=== PATIENT | female | born 1965 | race Caucasian/White ===

== ENCOUNTER 2017-10-10 14:34 | Emergency (ER) | payer MEDICAID ==
[~2017-10-10] VITALS: Ht 170.2 cm; Wt 106.8 kg
[~2017-10-10 14:34] MED LIST: HYDR-3965 PO; PENI500T2 PO
[2017-10-10] MEDS ORDERED: IBUP-1984 PO (15:20)
[2017-10-10 15:35] VITALS: BP 145/89
== END 2017-10-10 15:35 | disposition home or self-care (01) ==
LOC: ER 14:34
DX: M25.511 Pain in right shoulder (principal); G89.29 Other chronic pain; Z88.2 Allergy status to sulfonamides; Z88.5 Allergy status to narcotic agent; Z79.899 Other long term (current) drug therapy; W06.XXXA Fall from bed, initial encounter; Y93.89 Activity, other specified; Y92.89 Other specified places as the place of occurrence of the external cause; Y99.8 Other external cause status
CPT/HCPCS: 99282